=== PATIENT | male | born 1985 ===

== ENCOUNTER 2018-09-09 14:43 | Emergency (ER) | payer OTHER ==
[2018-09-09 15:12] VITALS: TEMP 98.7
--- NOTE | 2018-09-09 15:35 | ED PDOC ---
HPI: Headache Time Seen by Provider: 09/09/18 15:21 Chief Complaint (Nursing): Psychiatric Evaluation Chief Complaint (Provider): Sinus Pressure, Frontal Headache, Palpitations History Per: Patient History/Exam Limitations: no limitations Onset/Duration Of Symptoms: Days (x1 month) Current Symptoms Are (Timing): Still Present Additional Complaint(s): 33 year old male presents to the ED for sinus pressure and frontal headaches associated with palpitations for the past month. Patient reports he feels depressed secondary to the persistence of his symptoms, but denies suicidal / homicidal ideation. Additionally denies fever, congestion, cough, and shortness of breath. PMD: [employer] Past Medical History Reviewed: Historical Data, Nursing Documentation, Vital Signs Vital Signs: Last Vital Signs Temp 98.7 F 09/09/18 15:09 Pulse 115 H 09/09/18 15:09 Resp 16 09/09/18 15:09 BP 151/88 H 09/09/18 15:09 Pulse Ox 97 09/09/18 15:09 - Medical History PMH: No Chronic Diseases - Surgical History Surgical History: No Surg Hx - Family History Family History: States: Unknown Family Hx - Home Medications Home Medications: Ambulatory Orders Medication Instructions Recorded Naproxen [Naprosyn] 500 mg PO Q12H #20 tab 09/09/18 - Allergies Allergies/Adverse Reactions: Allergies Allergy/AdvReac Type Severity Reaction Status Date / Time No Known Allergies Allergy Verified 09/09/18 15:06 Review of Systems ROS Statement: Except As Marked, All Systems Reviewed And Found Negative Constitutional: Negative for: Fever ENT: Positive for: Other (sinus pressure). Negative for: Nose Congestion Respiratory: Negative for: Cough, Shortness of Breath Neurological: Positive for: Headache (frontal) Psych: Positive for: Depression. Negative for: Suicidal ideation (and homicidal ideation) Physical Exam - Reviewed Nursing Documentation Reviewed: Yes Vital Signs Reviewed: Yes - Physical Exam Appears: Positive for: No Acute Distress Head Exam: Positive for: ATRAUMATIC, NORMOCEPHALIC Skin: Positive for: Normal Color, Warm, Dry Eye Exam: Positive for: Normal appearance, EOMI, PERRL ENT: Positive for: Normal ENT Inspection. Negative for: Sinus Pain/Drainage Neck: Positive for: Normal, Painless ROM, Supple Cardiovascular/Chest: Positive for: Regular Rate, Rhythm Respiratory: Positive for: Normal Breath Sounds. Negative for: Respiratory Distress Extremity: Positive for: Normal ROM Neurologic/Psych: Positive for: Alert, Oriented (x3). Negative for: Motor/Sensory Deficits - Laboratory Results Result Diagrams: 09/09/18 15:44 09/09/18 15:44 - ECG O2 Sat by Pulse Oximetry: 97 (RA) Pulse Ox Interpretation: Normal - Progress Re-evaluation Time: 16:59 Condition: Improved (HR 95. No chest pain or palpitations. No SOB) Medical Decision Making Medical Decision Making: Time: 7 Initial Impression: headache Initial Plan: --CT head without contrast --EKG --CMP --CBC with differential ---- Scribe Attestation: Documented by Edel White acting as a scribe for Johan Layton MD. Provider Scribe Attestation: All medical record entries made by the Scribe were at my direction and personally dictated by me. I have reviewed the chart and agree that the record accurately reflects my personal performance of the history, physical exam, medical decision making, and the department course for this patient. I have also personally directed, reviewed, and agree with the discharge instructions and disposition. Disposition - Clinical Impression Clinical Impression: Headache - Patient ED Disposition Is Patient to be Admitted: No Counseled Patient/Family Regarding: Studies Performed, Diagnosis, Need For Followup, Rx Given - Disposition Referrals: [facility] [Outside] Disposition: Routine/Home Disposition Time: 16:59 Condition: FAIR Prescriptions: Naproxen [Naprosyn] 500 mg PO Q12H #20 tab Instructions: Headache, Adult Forms: [facility] (Urdu) Print Language: SAMI
[2018-09-09 16:05] LABS: BASO % 0.5 % (0.0-2.0); EOS % 0.3 % (0.0-4.0); HEMOGLOBIN 16.1 g/dL (12.0-18.0); MEAN CELL VOLUME 84.7 fl (80.0-94.0); MEAN CORPUSCULAR HEMOGLOBIN 28.7 pg (27.0-31.0); MEAN CORPUSCULAR HGB CONC 33.8 g/dL (33.0-37.0); MEAN PLATELET VOLUME 8.6 fl (7.2-11.7); MONO # 0.5 K/uL (0.0-0.8); MONO % 5.9 % (0.0-10.0); NEUT # 7.6 K/uL (1.8-7.0); NEUT % 82.3 % (50.0-75.0); NRBC % 0.1 % (0.0-0.0); RBC 5.63 Mil/uL (4.40-5.90); RED CELL DISTRIBUTION WIDTH 13.6 % (11.5-14.5); WHITE BLOOD COUNT 9.2 K/uL (4.8-10.8)
[2018-09-09 16:13] LABS: ALB/GLOB RATIO 1.2 (1.0-2.1); ALBUMIN 4.7 g/dL (3.5-5.0); ALT/SGPT 120 U/L (21-72); AST/SGOT 63 U/L (17-59); BLOOD UREA NITROGEN 10 mg/dl (9-20); CALCIUM 9.7 mg/dL (8.4-10.2); GFR NON-AFRICAN AMERICAN > 60
--- NOTE | 2018-09-09 16:23 | CT ---
Date of service: 09/09/2018 PROCEDURE: CT HEAD WITHOUT CONTRAST. HISTORY: r/o bleed COMPARISON: None available. TECHNIQUE: Axial computed tomography images were obtained through the head/brain without intravenous contrast. Radiation dose: Total exam DLP = 682.91 mGy-cm. This CT exam was performed using one or more of the following dose reduction techniques: Automated exposure control, adjustment of the mA and/or kV according to patient size, and/or use of iterative reconstruction technique. FINDINGS: HEMORRHAGE: No intracranial hemorrhage. BRAIN: Noguera-white matter differentiation is preserved. There is no mass, mass effect or abnormal extra-axial fluid collection. There is no territorial infarction. The midline sagittal structures are normal. VENTRICLES: The ventricles are normal in size, shape and configuration. CALVARIUM: There is no calvarial fracture or extracranial soft tissue swelling. PARANASAL SINUSES: Predominantly clear. MASTOID AIR CELLS: Predominantly clear. OTHER FINDINGS: None. IMPRESSION: No acute intracranial abnormality.
[2018-09-09] MEDS ORDERED: Potassium Chloride 20 mEq ER Tab PO ONE (16:36)
[2018-09-09 17:18] VITALS: BP 148/82; PULSE 95; RESP 18; O2SAT 99
--- NOTE | 2018-09-10 06:26 | CARD ---
APPROVED REPORT Date of service: 09/09/2018 EKG Measurement Heart [id number] <Conclusion> Sinus tachycardia Incomplete right bundle branch block Borderline ECG
== END 2018-09-09 17:13 | disposition home or self-care (01) ==
LOC: H.ER 14:43
DX: R51 Headache (principal)